=== PATIENT | male | born 1980 | race Caucasian/White ===

== ENCOUNTER 2016-09-30 23:57 | Emergency (ER) | payer BC ==
--- NOTE | 2016-10-01 03:01 | ED ORDER SUMMARY ---
..... Patient: KHARI PHILLIPS OrderSheet [facility] VisitID: [id number] [address] [place] [address] 36y, M Registration Date/Time: 10/01/2016 ORDER SHEET Weight: 117.9 kg (stated) Allergies: No Known Drug Allergy GENERAL ORDERS: CT Abd/Pel wo Cont Urgent (01:32 10/01/2016 Reyna HUMPHRIES) (Ack 1:34 IJurca ER Tech1) (1:53 Gama Davidson.NAkhil) MEDICATION ORDERS: IV FLUIDS: ORDER SHEET NOTES: [Electronically signed by Johnathan Juarez R.N. (04:15 10/01/2016)] [Electronically signed by Kenzie Mccall MD (21:28 10/07/2016)] [Electronically locked/signed by Johnathan Juarez R.N. (04:15 10/01/2016)]
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
--- NOTE | 2016-10-01 03:01 | ED ORDER SUMMARY ---
..... Patient: KHARI PHILLIPS OrderSheet [facility] VisitID: [id number] [address] [place] [address] 36y, M Registration Date/Time: 10/01/2016 ORDER SHEET Weight: 117.9 kg (stated) Allergies: No Known Drug Allergy GENERAL ORDERS: CT Abd/Pel wo Cont Urgent (01:32 10/01/2016 Reyna HUMPHRIES) (Ack 1:34 IJurca ER Tech1) (1:53 Gama Davidson.NAkhil) MEDICATION ORDERS: IV FLUIDS: ORDER SHEET NOTES: [Electronically signed by Johnathan Juarez R.N. (04:15 10/01/2016)] [Electronically signed by Kenzie Mccall MD (21:28 10/07/2016)] [Electronically locked/signed by Johnathan Juarez R.N. (04:15 10/01/2016)]
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
--- NOTE | 2016-10-01 07:07 | DIAGNOSTIC IMAGING REPORT ---
PROCEDURE: CT ABDOMEN/PELVIS W/O CONTRAST INDICATION: Left upper quadrant pain x 3 months, initial encounter TECHNIQUE: Noncontrast axial images were obtained of the entire abdomen and pelvis with sagittal and coronal reformations. COMPARISON: None. FINDINGS: ABDOMEN: Lung base are clear. Heart size is normal. Contracted gallbladder. Liver, pancreas, spleen, adrenal glands and kidneys are normal. Minor atherosclerosis. Small hiatal hernia. PELVIS: Normal appendix. Mildly enlarged prostate. Normal bladder. No pelvic mass, inflammatory changes or free fluid. Moderate L5-S1 disc space narrowing. IMPRESSION: 1. Contracted gallbladder 2. Small hiatal hernia 3. Preliminary results submitted by Dr. Cabrera, [facility] radiology. All CT scans at this facility use dose modulation, iterative reconstruction, and/or weight-based dosing when appropriate to reduce radiation dose to as low as reasonably achievable.
--- NOTE | 2016-10-07 21:29 | ED MED RECONCILIATION SUMMARY ---
Patient: KHARI PHILLIPS Medication Reconciliation Report [facility] VisitID: [id number] [place] [address] 36y, M Registration Date/Time: 10/01/2016 Weight: 117.9 kg Height/Length: 80 in. BMI: 28.6 ALLERGIES: No Known Drug Allergy The patient's Home Medications are listed below: THE FOLLOWING MEDICATIONS NEED TO BE RECONCILED: "ADHD" medication "stress" medication The source(s) of the original Home Medication information: Not obtained. The following Medications were given to the patient in the Emergency Department: None. The following Medications were prescribed to the patient: Prilosec 20 mg capsules: take 1 capsule orally every day. Dispense thirty (30). No refill. Substitution is permissible. -- Kenzie Mccall MD Zantac 150 mg: take 1 orally every 12 hours. Dispense sixty (60). No refills. Substitution is permissible. -- Kenzie Mccall MD
--- NOTE | 2016-10-07 21:29 | ED DISCHARGE INSTRUCTIONS ---
Patient: KHARI PHILLIPS General Instructions [facility] VisitID: [id number] [place] [address] 36y, M Registration Date/Time: 10/01/2016 Chronic left upper quadrant abdominal pain of unknown cause (with acute exacerbation). Hiatal hernia. INSTRUCTIONS Drink plenty of fluids. (Your CT scan shows that your ribs and internal organs look good, though you do have herniation of part of your stomach into your chest cavity. This can increase the likelihood of an ulcer. A CT scan will not show ulcers; an endoscopy (procedure where a camera is put down to directly look at the inside of the stomach) is the best way to evaluate for this.). Warnings: GENERAL WARNINGS: Return or contact your physician immediately if your condition worsens or changes unexpectedly, if not improving as expected, or if other problems arise. Prescription Medications: Prilosec 20 mg capsules: take 1 capsule orally every day. Dispense thirty (30). No refill. Substitution is permissible. Zantac 150 mg: take 1 orally every 12 hours. Dispense sixty (60). No refills. Substitution is permissible. Follow-up: Follow up with your doctor. Call for the next available appointment. Reason for referral: Discuss possibility of endoscopy. Understanding of the discharge instructions verbalized by patient. ADDITIONAL INFORMATION Abdominal Pain,Uncertain Cause [Male] Based on your visit today, the exact cause of your abdominalpain is not clear. Your exam and tests do not indicate a dangerous cause at this time. However, the signs of a serious problem may take more time to appear. Although your evaluation was reassuring today, sometimes early in the course of many conditions, exam and lab tests can appear normal. Therefore, it is important for you to watch for any new symptoms or worsening of your condition. Causes It may not be obvious what caused your symptoms. Pay attention to things that do seem to make your symptoms worse or better and discuss this with your doctor when you follow up. Diagnosis The evaluation of abdominal pain in the emergency department may onlyrequire an exam by the doctor or it may include blood, urine or imaging studies, depending on many factors. Sometimes exams and tests can identify a cause but in many cases, a clear cause is not found. Further testing at follow up visits may help to suggest a clear diagnosis. Home Care Rest as much as possible until your next exam. Try to avoid any medications (unless otherwise directed by your doctor), foods, activities, or other factors that you may have contributed to your symptoms. Try to eat foods that you know that you have tolerated well in the past. Certain diets may be recommended for some conditions that cause abdominal pain. However, since the cause of your symptoms may not be clear, discuss your diet more with your primary care provider or specialist for further recommendations. Eating several small meals per day as opposed to 2 or 3 larger meals may help. Monitor closely for anything that may make your symptoms worse or better. Pay close attention to symptoms below that may indicate worsening of your condition. Follow Up and Precautions See your doctoras instructed or sooneror if your symptoms are not improving.In some cases, you may need more testing. When to Seek Medical Attention Contact your doctor or see medical attention ifany of the following occur: Pain is becoming worse You are unable to take your medications due to excessive vomiting Swelling of the abdomen Fever of 100.4F (38C) or higher, or as directed by your health care provider Blood in vomit or bowel movements (dark red or black color) Jaundice (yellow color of eyes and skin) New onset of weakness, dizziness or fainting New onset of chest, arm, back, neck or jaw pain You have been given the following additional information: Abdominal Pain, Unknown Cause, (Male) (Electronically signed by Kenzie Mccall MD 10/07/2016 21:28)
--- NOTE | 2016-10-07 21:29 | ED MAR SUMMARY ---
..... Medication Administration Record [facility] [address] [place] [id number] Patient: KHARI PHILLIPS Visit ID: [id number] 36y, M Weight: 117.9 kg Height/Length: 80 in BMI: 28.6 ALLERGIES: No Known Drug Allergy
--- NOTE | 2016-10-07 21:29 | ED MED RECONCILIATION SUMMARY ---
Patient: KHARI PHILLIPS Medication Reconciliation Report [facility] VisitID: [id number] [place] [address] 36y, M Registration Date/Time: 10/01/2016 Weight: 117.9 kg Height/Length: 80 in. BMI: 28.6 ALLERGIES: No Known Drug Allergy The patient's Home Medications are listed below: THE FOLLOWING MEDICATIONS NEED TO BE RECONCILED: "ADHD" medication "stress" medication The source(s) of the original Home Medication information: Not obtained. The following Medications were given to the patient in the Emergency Department: None. The following Medications were prescribed to the patient: Prilosec 20 mg capsules: take 1 capsule orally every day. Dispense thirty (30). No refill. Substitution is permissible. -- Kenzie Mccall MD Zantac 150 mg: take 1 orally every 12 hours. Dispense sixty (60). No refills. Substitution is permissible. -- Kenzie Mccall MD
--- NOTE | 2016-10-07 21:29 | ED MAR SUMMARY ---
..... Medication Administration Record [facility] [address] [place], [place] [id number] Patient: KHARI PHILLIPS Visit ID: [id number] 36y, M Weight: 117.9 kg Height/Length: 80 in BMI: 28.6 ALLERGIES: No Known Drug Allergy
== END 2016-10-01 03:42 | disposition home or self-care (01) ==
LOC: ED SRH 23:57
DX: K44.9 Diaphragmatic hernia without obstruction or gangrene (principal); R10.12 Left upper quadrant pain